=== PATIENT | male | born 1980 | race Hispanic/Latino ===

== ENCOUNTER 2018-01-22 01:01 | Emergency (ER) | payer SELFPAY ==
[2018-01-22] MEDS ORDERED: NA CHLORIDE 0.9% 1,000 ML ONE (01:29)
[2018-01-22 02:23] LABS: Absolute Lymphocytes (CBC) 4.2 K/uL (0.7-4.9); Absolute Monocytes 0.9 K/uL (0.1-1.3); Absolute Neutrophil 5.1 K/uL (1.8-8.0); Basophils % 0.8 % (0-1.3); Eosinophils % 2.8 % (0-4.4); Hematocrit 39.5 % (39.6-49.0); Lymphocytes % 39.7 % (15.3-44.8); MCH 31.6 pg (27.0-35.0); MCV 90.7 fL (80-100); Monocytes % 8.8 % (3.3-12.3); RBC Red Blood Cell Count 4.35 M/uL (4.33-5.43)
[2018-01-22 02:50] LABS: Urine Blood 3+ (NEG); Urine Glucose NEGATIVE (NEG); Urine Protein NEGATIVE (NEG); Urine Specific Gravity 1.025 (1.005-1.030); Urine pH 5.5 (5.0-7.0)
[2018-01-22 02:50] LABS: ALT/SGPT 28 U/L (12-78); AST/SGOT 23 U/L (15-37); Albumin 3.8 g/dL (3.4-5.0); Alkaline Phosphatase 88 U/L (45-117); BUN Blood Urea Nitrogen 19 mg/dL (7-18); Bicarbonate 27 mmol/L (21-32); Bilirubin Direct < 0.1 mg/dL (0-0.2); Bilirubin Total 0.3 mg/dL (0.2-1.0); Glucose Level 120 mg/dL (74-106); Lipase 176 U/L (73-393); Potassium 3.8 mmol/L (3.5-5.1); Protein, Total 7.2 g/dL (6.4-8.2); Sodium Level 142 mmol/L (136-145)
--- NOTE | 2018-01-22 02:59 | EDPHYS ---
Physician Documentation [facility] Name: Denis Grove Age: 37 yrs Sex: Male : 1980 Arrival Date: 01/22/2018 Time: 01:02 Bed 18 Private MD: Alex Leggett H ED Physician Soledad Robert HPI: 01/22 01:21 This 37 yrs old Male presents to ER via Ambulatory with complaints of Left pm1 Flank Pain. 01:21 The patient presents with abdominal pain. pm1 01:22 The patient complains of pain in the left low back. The pain radiates to the left lower pm1 quadrant. Onset: The symptoms/episode began/occurred this morning. Modifying factors: The symptoms are alleviated by nothing. the symptoms are aggravated by nothing. Associated signs and symptoms: Pertinent positives: dysuria, Pertinent negatives: fever, nausea, vomiting. Severity of pain: in the emergency department the pain has improved. The patient has experienced similar episodes in the past, a few times. The patient has not recently seen a physician, the patient's primary care provider is Dr. Leggett, Has had same pain evaluated in the past but it was mostly resolved at that time. Historical: - Allergies: 01:12 No Known Allergies; bb - Home Meds: 01:12 lisinopril 20 mg Oral tab 1 tab once daily [Active]; bb - PMHx: 01:12 Hypertension; bb - PSHx: 01:12 None; bb - Immunization history:: Adult Immunizations unknown. - Social history:: Smoking status: Patient/guardian denies using tobacco, Patient uses alcohol, occasionally. Patient/guardian denies using street drugs. - Ebola Screening: : No symptoms or risks identified at this time. ROS: 01:22 Constitutional: Negative for fever, chills, and weight loss, Eyes: Negative for injury, pm1 pain, redness, and discharge, ENT: Negative for injury, pain, and discharge, Neck: Negative for injury, pain, and swelling, Cardiovascular: Negative for chest pain, palpitations, and edema, Respiratory: Negative for shortness of breath, cough, wheezing, and pleuritic chest pain. 01:22 MS/Extremity: Negative for injury and deformity, Skin: Negative for injury, rash, and discoloration, Neuro: Negative for headache, weakness, numbness, tingling, and seizure. 01:22 Abdomen/GI: Positive for abdominal pain, of the left lower quadrant, Negative for nausea, vomiting, and diarrhea. 01:22 Back: Positive for flank pain, on the left. 01:22 : Positive for burning with urination, Negative for difficulty urinating, penile discharge, penile pain, testicular pain Exam: :22 Constitutional: This is a well developed, well nourished patient who is awake, alert, pm1 and in no acute distress. Head/Face: Normocephalic, atraumatic. Eyes: Pupils equal round and reactive to light, extra-ocular motions intact. Lids and lashes normal. Conjunctiva and sclera are non-icteric and not injected. Cornea within normal limits. Periorbital areas with no swelling, redness, or edema. ENT: Nares patent. No nasal discharge, no septal abnormalities noted. Tympanic membranes are normal and external auditory canals are clear. Oropharynx with no redness, swelling, or masses, exudates, or evidence of obstruction, uvula midline. Mucous membranes moist. Neck: Trachea midline, no thyromegaly or masses palpated, and no cervical lymphadenopathy. Supple, full range of motion without nuchal rigidity, or vertebral point tenderness. No Meningismus. Chest/axilla: Normal chest wall appearance and motion. Nontender with no deformity. No lesions are appreciated. Cardiovascular: Regular rate and rhythm with a normal S1 and S2. No gallops, murmurs, or rubs. Normal PMI, no JVD. No pulse deficits. Respiratory: Lungs have equal breath sounds bilaterally, clear to auscultation and percussion. No rales, rhonchi or wheezes noted. No increased work of breathing, no retractions or nasal flaring. 01:22 Skin: Warm, dry with normal turgor. Normal color with no rashes, no lesions, and no evidence of cellulitis. MS/ Extremity: Pulses equal, no cyanosis. Neurovascular intact. Full, normal range of motion. :22 Abdomen/GI: Inspection: abdomen appears normal, Bowel sounds: normal, Palpation: abdomen is soft and non-tender. :22 Back: ROM is normal, normal spinal alignment noted, CVA tenderness, is absent. :22 Neuro: Orientation: is normal, Mentation: is normal, Motor: moves all fours, Sensation: is normal, no obvious gross deficits, Gait: is steady, at a normal pace, without difficulty. Vital Signs: 01:12 BP 148 / 90; Pulse 82; Resp 16 S; Temp 97.9(O); Pulse Ox 100% on R/A; Weight 104.33 kg bb (R); Height 5 ft. 9 in. (175.26 cm) (R); Pain 9/10; 01:51 BP 141 / 86; Pulse 69; Resp 16; Pulse Ox 99% on R/A; aa1 02:32 BP 133 / 66; Pulse 67; Resp 16; Pulse Ox 99% on R/A; aa1 03:22 BP 120 / 68; Pulse 72; Resp 16; Pulse Ox 100% on R/A; Pain 0/10; aa1 01:12 Body Mass Index 33.96 (104.33 kg, 175.26 cm) bb MDM: 01:07 Patient medically screened. pm1 02:57 Data reviewed: vital signs. Data interpreted: Pulse oximetry: on room air is 99 %. pm1 Interpretation: normal. Counseling: I had a detailed discussion with the patient and/or guardian regarding: the historical points, exam findings, and any diagnostic results supporting the discharge/admit diagnosis, lab results, radiology results, the need for outpatient follow up, to return to the emergency department if symptoms worsen or persist or if there are any questions or concerns that arise at home. 03:00 ED course: Vrad: 5 mm Left UVJ with moderate hydronephrosis. Patient comfortable in bed pm1 without any medications given in the ER. Patient refused pain medications offered. Will discharge patient home to follow up with urology. 01/22 01:12 Order name: Basic Metabolic Panel pm01/22 01:12 Order name: CBC with Diff pm01/22 01:12 Order name: Hepatic Function pm01/22 01:12 Order name: Lipase pm01/22 01:12 Order name: Basic Metabolic Panel; Complete Time: 02:52 EDMS 01/22 01:12 Order name: CBC with Automated Diff; Complete Time: 02:52 EDMS 01/22 01:12 Order name: IV Saline Lock; Complete Time: 01:33 pm1 01/22 01:12 Order name: CT Stone Protocol pm01/22 01:12 Order name: Liver (Hepatic) Function; Complete Time: 02:52 EDMS 01/22 01:12 Order name: Lipase; Complete Time: 02:52 EDNM 01/22 01:49 Order name: Urine Dipstick--Ancillary (enter results); Complete Time: 02:52 rg2 01/22 01:12 Order name: Labs collected and sent; Complete Time: 01:33 pm1 01/22 01:12 Order name: Urine Dipstick-Ancillary (obtain specimen); Complete Time: 01:33 pm1 Administered Medications: 01:50 Drug: NS 0.9% 1000 ml Route: IV; Rate: 1000 ml; Site: right antecubital; aa1 03:20 Follow up: IV Status: Completed infusion aa1 03:21 Drug: Flomax 0.4 mg Route: PO; aa1 03:21 Follow up: Response: Medication administered at discharge. aa1 03:21 Drug: TORadol 30 mg Route: IVP; Site: right antecubital; aa1 03:21 Follow up: Response: Medication administered at discharge. aa1 Disposition: 04:25 Co-signature as Attending Physician, Soledad Robert MD. ma2 Disposition: 01/22/18 02:59 Discharged to Home. Impression: Hydronephrosis with renal and ureteral calculous obstruction - Left. - Condition is Stable. - Discharge Instructions: Kidney Stones, Dietary Guidelines to Help Prevent Kidney Stones. - Prescriptions for Tylenol- Codeine #3 300-30 mg Oral Tablet - take 2 tablets by ORAL route every 6 hours As needed; 20 tablet. Zofran 4 mg Oral Tablet - take 1 tablet by ORAL route every 12 hours As needed; 20 tablet. Flomax 0.4 mg Oral Capsule, Sust. Release 24 hr - take 1 capsule by ORAL route once daily 1/2 hour following the same meal each day; 30 capsule. - Medication Reconciliation Form, Thank You Letter, Prescription Opioid Use form. - Follow up: Emergency Department; When: As needed; Reason: Worsening of condition. Follow up: Emilie Jackson MD; When: 2 - 3 days; Reason: Recheck today's complaints, Continuance of care, Re-evaluation by your physician. - Problem is new. - Symptoms have improved. Signatures: Dispatcher [employer] Tammie Anderson RN RN aa1 Gay Llanes RN RN bb Jimbo Serrano NP POSITION CLASSIFICATION MANAGER pm1 Soledad Robert MD MD ma2 Corrections: (The following items were deleted from the chart) 03:23 02:59 01/22/2018 02:59 Discharged to Home. Impression: Hydronephrosis with renal and aa1 ureteral calculous obstruction - Left. Condition is Stable. Forms are Medication Reconciliation Form, Thank You Letter, Antibiotic Education, Prescription Opioid Use. Follow up: Emergency Department; When: As needed; Reason: Worsening of condition. Follow up: Emilie Jackson; When: 2 - 3 days; Reason: Recheck today's complaints, Continuance of care, Re-evaluation by your physician. Problem is new. Symptoms have improved. pm1
--- NOTE | 2018-01-22 02:59 | ER ---
Nurse's Notes [facility] Name: Denis Grove Age: 37 yrs Sex: Male : 1980 Arrival Date: 01/22/2018 Time: 01:02 Bed 18 Private MD: Alex Leggett H Diagnosis: Hydronephrosis with renal and ureteral calculous obstruction-Left Presentation: 01/22 01:10 Presenting complaint: Patient states: at lunch time yesterday he noticed some bb intermittent lower abdominal pain which is still there and he is c/o burning with urination. Transition of care: patient was not received from another setting of care. Onset of symptoms was January 21, 2018. Risk Assessment: Do you want to hurt yourself or someone else? Patient reports no desire to harm self or others. Initial Sepsis Screen: Does the patient meet any 2 criteria? No. Patient's initial sepsis screen is negative. Does the patient have a suspected source of infection? No. Patient's initial sepsis screen is negative. Care prior to arrival: None. 01:10 Method Of Arrival: Ambulatory bb 01:10 Acuity: ZAY 3 bb Historical: - Allergies: 01:12 No Known Allergies; bb - Home Meds: 01:12 lisinopril 20 mg Oral tab 1 tab once daily [Active]; bb - PMHx: 01:12 Hypertension; bb - PSHx: 01:12 None; bb - Immunization history:: Adult Immunizations unknown. - Social history:: Smoking status: Patient/guardian denies using tobacco, Patient uses alcohol, occasionally. Patient/guardian denies using street drugs. - Ebola Screening: : No symptoms or risks identified at this time. Screenin:14 Abuse screen: Denies threats or abuse. Nutritional screening: No deficits noted. bb Tuberculosis screening: No symptoms or risk factors identified. Fall Risk None identified. Assessment: 01:15 General: Appears in no apparent distress. comfortable, Behavior is calm, cooperative, aa1 appropriate for age. Pain: Complains of pain in left lower quadrant and left low back Quality of pain is described as burning, aching, Pain began 1 day ago. Neuro: Level of Consciousness is awake, alert, obeys commands, Oriented to person, place, time, situation, Gait is steady. Respiratory: Airway is patent Respiratory effort is even, unlabored, Respiratory pattern is regular, symmetrical. GI: Abdomen is non-distended, Bowel sounds present X 4 quads. Abd is soft X 4 quads Abdomen is tender to palpation in left lower quadrant Reports lower abdominal pain, Patient currently denies constipation, diarrhea, nausea, vomiting. : Reports burning with urination. EENT: No signs and/or symptoms were reported regarding the EENT system. Derm: Skin is intact, is healthy with good turgor, Skin is pink, warm \T\ dry. Musculoskeletal: Circulation, motion, and sensation intact. Capillary refill < 3 seconds, Range of motion: intact in all extremities. 02:32 Reassessment: Patient appears in no apparent distress at this time. Patient and/or aa1 family updated on plan of care and expected duration. Pain level reassessed. Patient is alert, oriented x 3, equal unlabored respirations, skin warm/dry/pink. Awaiting CT results. 03:22 Reassessment: Patient appears in no apparent distress at this time. Patient is alert, aa1 oriented x 3, equal unlabored respirations, skin warm/dry/pink. Discussed d/c \T\ f/u instructions with pt; denies questions or concerns at this time Patient denies pain at this time. Patient states feeling better. Vital Signs: 01:12 BP 148 / 90; Pulse 82; Resp 16 S; Temp 97.9(O); Pulse Ox 100% on R/A; Weight 104.33 kg bb (R); Height 5 ft. 9 in. (175.26 cm) (R); Pain 9/10; 01:51 BP 141 / 86; Pulse 69; Resp 16; Pulse Ox 99% on R/A; aa1 02:32 BP 133 / 66; Pulse 67; Resp 16; Pulse Ox 99% on R/A; aa1 03:22 BP 120 / 68; Pulse 72; Resp 16; Pulse Ox 100% on R/A; Pain 0/10; aa1 01:12 Body Mass Index 33.96 (104.33 kg, 175.26 cm) bb ED Course: 01:02 Patient arrived in ED. am2 01:03 Alex Leggett DO is Private Physician. am2 01:06 Tammie Dale RN is Primary Nurse. aa1 01:06 [facility] pm1 01:06 Soledad Robert MD is Attending Physician. pm1 01:12 Triage completed. bb 01:12 Arm band placed on Patient placed in an exam room, on a stretcher, on pulse oximetry. bb 01:13 Patient has correct armband on for positive identification. Bed in low position. Call bb light in reach. Side rails up X 1. Pulse ox on. NIBP on. 01:20 Initial lab(s) drawn, by me, sent to lab. Urine collected: clean catch specimen, clear. aa1 Inserted saline lock: 20 gauge in right antecubital area, using aseptic technique. Blood collected. 01:[address] via wheelchair. kw1 01:39 CT Stone Protocol In Process Unspecified. EDMS 01:39 CT completed. Patient tolerated procedure well. Patient moved back from [place]. kw1 02:58 Emilie Jackson MD is Referral Physician. pm1 03:22 No provider procedures requiring assistance completed. IV discontinued, intact, aa1 bleeding controlled, No redness/swelling at site. Pressure dressing applied. Administered Medications: 01:50 Drug: NS 0.9% 1000 ml Route: IV; Rate: 1000 ml; Site: right antecubital; aa1 03:20 Follow up: IV Status: Completed infusion aa1 03:21 Drug: Flomax 0.4 mg Route: PO; aa1 03:21 Follow up: Response: Medication administered at discharge. aa1 03:21 Drug: TORadol 30 mg Route: IVP; Site: right antecubital; aa1 03:21 Follow up: Response: Medication administered at discharge. aa1 Outcome: 02:59 Discharge ordered by . pm1 03:22 Discharged to home ambulatory. aa1 03:22 Condition: good 03:22 Discharge instructions given to patient, Instructed on discharge instructions, follow up and referral plans. medication usage, Demonstrated understanding of instructions, follow-up care, medications, Prescriptions given X 3. 03:23 Patient left the ED. aa1 Signatures: Dispatcher [employer] EDMS Tammie Dale RN RN aa1 Gay Llanes RN RN bb Jimbo Serrano, NATHALY DYE TUB OPERATOR pm1 Elham Mendez am2 Ashtyn Farooq kw1 Corrections: (The following items were deleted from the chart) 01:26 01:21 Patient moved to [place] via wheelchair. kw1 kw1
[2018-01-22] MEDS ORDERED: KETOROLAC 30 MG/ML INJ ONE (03:16)
[2018-01-22] MEDS ORDERED: TAMSULOSIN 0.4 MG SR CAP ONE (03:16)
--- NOTE | 2018-01-22 08:31 | RAD REPORT ---
EXAM DESCRIPTION: CT - Stone Protocol - 01/22/2018 5:45 am CLINICAL HISTORY: Flank pain. FLANK PAIN COMPARISON: No comparisons TECHNIQUE: Axial images were obtained without oral or IV contrast. Lack of contrast limits solid org an and vascular assessment. The [id number] spans the entirety of the system partially obscuring uppermost abdomen and lung bases. Coronal reformatted images were obtained and reviewed. All CT scans are performed using dose optimization technique as appropriate and may include automated exposure control or mA/KV adjustment according to patient size. FINDINGS: The lower lung marie are clear. Imaged portions of the liver and spleen show no suspicious findings on non-contrast imaging. The panc reas and adrenal glands are normal. No pathologic lymphadenopathy in the abdomen or pelvis. 5 mm left UVJ stone (720 HU) with mild left hydronephrosis. No additional stones seen. No bowel obstruction, free air, free fluid or abscess. Normal appendix noted. No significant bony abnormality. Chronic mild wedging T11 and T12 noted. IMPRESSION: 5 mm left UVJ stone (720 HU) resulting in mild left hydronephrosis.
== END 2018-01-22 03:23 | disposition home or self-care (01) ==
LOC: ER 01:01
DX: N13.2 Hydronephrosis with renal and ureteral calculous obstruction (principal); I10 Essential (primary) hypertension
CPT/HCPCS: 36415; 74176; 76377; 80048; 80076; 81003; 83690; 85025; 96361; 96374; 99284; J7030